=== PATIENT | female | born 1985 | race Caucasian/White ===

== ENCOUNTER 2019-07-20 16:35 | Emergency (ER) | payer SELFPAY ==
[~2019-07-20] VITALS: Ht 165.1 cm; Wt 136.1 kg
[2019-07-20] MEDS ORDERED: PRD20T PO ×2 (16:44→16:55)
[2019-07-20] MEDS ORDERED: METH-313 PO ×2 (16:44→16:55)
--- NOTE | 2019-07-20 16:44 | ED Back Pain ---
General Stated Complaint: BACK PAIN Source of Information: Patient Exam Limitations: No Limitations History of Present Illness Date Seen by Provider: Jul 20, 2019 Time Seen by Provider: 16:51 Initial Comments To ER by private vehicle accompanied by mother with reports of midline low back pain that radiates down the right anterior thigh terminating just above the knee. She states that she's been diagnosed with degenerative disc disease and occasionally it "flares up". She states that she coughed a few days ago and believes this to have been the precipitating factor. No fevers or chills, no history of IV drug use, no loss of sensation of the genitals or loss of control of bowel or bladder. She just moved here from [place]. Does not have a local physician. Location: Lumbar Spine, Paraspinous Muscles Timing/Duration: 2-3 Days Severity: Moderate Pain/Injury Location: Back Associated Symptoms: lower back pain Allergies and Home Medications Allergies Coded Allergies: No Known Drug Allergies (Unverified , 07/20/19) Home Medications Methocarbamol 750 Mg Tablet, 750 MG PO Q4H PRN for PAIN-SEVERE Prescribed by: PRATIK CAIN on 07/20/19 164 Prednisone 20 Mg Tab, 40 MG PO DAILY Prescribed by: PRATIK CAIN on 07/20/19 1644 Patient Home Medication List Home Medication List Reviewed: Yes Review of Systems Constitutional: see HPI EENTM: see HPI Respiratory: no symptoms reported Cardiovascular: no symptoms reported Genitourinary: no symptoms reported Musculoskeletal: see HPI, back pain Skin: no symptoms reported Psychiatric/Neurological: No Symptoms Reported Past Pokktew-Tqmmli-Bqhwlh Hx Patient Social History Recent Foreign Travel: No Contact w/Someone Who Travel: No Physical Exam Vital Signs Capillary Refill : Height, Weight, BMI Height: '" Weight: lbs. oz. kg; BMI Method: General Appearance: No Apparent Distress, WD/WN, Obese HEENT: PERRL/EOMI, TMs Normal Neck: Full Range of Motion, Normal Inspection Respiratory: No Accessory Muscle Use, No Respiratory Distress Gastrointestinal: Normal Bowel Sounds, Non Tender, Soft Neurologic/Psychiatric: Alert, Oriented x3, No Motor/Sensory Deficits Progress/Results/Core Measures Results/Orders My Orders Orders - PRATIK CAIN APRN Ketorolac Injection (Toradol Injection) (07/20/19 17:00) Orphenadrine Injection (Norflex Injectio (07/20/19 17:00) Departure Impression Primary Impression: Back pain Qualified Codes: M54.5 - Low back pain Disposition: 01 HOME, SELF-CARE Condition: Stable Departure-Patient Inst. Decision time for Depature: 16:42 Referrals: SARABJIT SPRAGUE BETHANY N MD GAULT, HOLLY R MD GRAHAM,NURA HERNADEZ,WARNER Dowling MD NO,LOCAL PHYSICIAN (PCP) Primary Care Physician PRETTY RICHMOND MD Patient Instructions: Low Back Pain (DC) Add. Discharge Instructions: 1. Anti-inflammatories and muscle relaxers as directed 2. Follow-up with your doctor next week for recheck. The [address] Alexander and Dr. Garcia. You can call them directly but they may require a referral from primary care, in which case call one of the other physicians listed to make an appointment first. Scripts Prednisone (Prednisone) 20 Mg Tab 40 MG PO DAILY, #6 TAB 0 Refills . Prov: PRATIK CAIN DOG BREEDER 07/20/19 Methocarbamol (Robaxin-750) 750 Mg Tablet 750 MG PO Q4H PRN for PAIN-SEVERE, #30 TAB . Prov: PRATIK CAIN APRN 07/20/19 PRATIK CAIN APRN Jul 20, 2019 16:44
[2019-07-20] MEDS ORDERED: KETOROLAC 30 MG/ML VIAL IM ONE (17:00)
[2019-07-20] MEDS ORDERED: ORPHENADRINE 60 MG/2 ML (NORFLEX) AMP IM ONE (17:00)
[2019-07-20 17:05] VITALS: BP 135/75
== END 2019-07-20 17:05 | disposition home or self-care (01) ==
LOC: ER 16:37
DX: M54.5 Low back pain (principal); M51.36 Other intervertebral disc degeneration, lumbar region
CPT/HCPCS: 99284